=== PATIENT | female | born 1995 | race Hispanic/Latino ===

== ENCOUNTER 2017-09-26 17:44 | Emergency (ER) | payer SELFPAY ==
[~2017-09-26 17:44] MED LIST: PNV91TAB3 PO
[2017-09-26] MEDS ORDERED: ACETAMINOPHEN 325 MG TAB ONE (18:11)
== END 2017-09-26 18:20 | disposition home or self-care (01) ==
LOC: EDH 17:44
DX: H66.91 Otitis media, unspecified, right ear (principal)